=== PATIENT | female | born 1960 | race Hispanic/Latino ===

== ENCOUNTER 2018-03-16 11:20 | Outpatient (CLI) | payer OTHER ==
--- NOTE | 2018-03-16 11:52 | RAD ---
RIGHT KNEE FOUR VIEWS: HISTORY: Right knee pain. FINDINGS: The joint spaces are preserved. Mild tricompartmental osteophytosis. No acute fracture, dislocation , or fluid distention of the suprapatellar bursa. IMPRESSION: Mild osteoarthritic changes right knee. POS: [facility]
== END 2018-03-16 11:21 | disposition home or self-care (01) ==
LOC: RAD-FRANK 11:20
PROVIDERS: ATTEND Family Medicine
DX: S83.91XD Sprain of unspecified site of right knee, subsequent encounter (principal); M17.11 Unilateral primary osteoarthritis, right knee

== ENCOUNTER 2024-06-08 09:08 | Emergency (ER) | payer SELFPAY | END 2024-06-08 10:18 | disposition home or self-care (01) | LOC: ERS 09:08 | DX: S93.491A Sprain of other ligament of right ankle, initial encounter (principal); E11.9 Type 2 diabetes mellitus without complications; X50.1XXA Overexertion from prolonged static or awkward postures, initial encounter | CPT/HCPCS: 99283 ==

== ENCOUNTER 2024-06-27 09:59 | Outpatient (CLI) | payer OTHER | END 2024-06-27 10:00 | disposition home or self-care (01) | LOC: BICRAD 09:59 | PROVIDERS: ATTEND Nurse Practitioner Family | DX: M25.571 Pain in right ankle and joints of right foot (principal); S82.831A Other fracture of upper and lower end of right fibula, initial encounter for closed fracture ==